=== PATIENT | male | born 1955 | race Caucasian/White ===

== ENCOUNTER → 2021-11-21 | Day surgery (SDC) | payer OTHER ==
[~2021-11-21] VITALS: Ht 182.9 cm; Wt 91.4 kg
[~2021-11-21] MED LIST: ASPIRIN EC81 MG PO; LIPITOR40 MG PO; LISINOPRIL-HCT1 EACH PO; VITAMIN D325 MC2 PO
[2021-11-21 08:01] LABS: HCT 45.6 % (42.0-52.0); HGB 15.6 g/dl (13.2-18.0); MCH 29.7 pg (25.0-31.0); MCHC 34.2 g/dL (32.0-36.0); MCV 86.9 fL (78.0-100.0); MPV 9.3 fL (6.0-9.5); RBC 5.25 M/uL (4.70-6.00); RDW 12.7 % (11.5-14.0); WBC 5.9 K/uL (4.0-10.5)
[2021-11-21 08:20] LABS: ALBUMIN 4.4 g/dL (3.4-5.0); BILIRUBIN - TOTAL 0.5 mg/dL (0.2-1.0); BUN/CREAT RATIO (CALC) 24.3 RATIO; CREATININE 1.03 mg/dL (0.67-1.17); GLOBULIN (CALCULATION) 3.4 g/dL; POTASSIUM 3.9 mmol/L (3.5-5.1); TOTAL PROTEIN 7.8 g/dL (6.4-8.2)
== END | disposition home or self-care (01) ==
LOC: FAS 07:29
PROVIDERS: Surgery
DX: Z12.11 Encounter for screening for malignant neoplasm of colon (principal); E78.5 Hyperlipidemia, unspecified; I10 Essential (primary) hypertension; Z86.010 Personal history of colon polyps; Z79.82 Long term (current) use of aspirin
CPT/HCPCS: 36415; 80053; J7120